=== PATIENT | female | born 1945 | race Caucasian/White ===

== ENCOUNTER 2021-02-25 14:30 | Inpatient (IN) ==
[2021-02-25] MEDS ORDERED: ALBUTEROL 2.5 MG/3 ML NEB RESP TX STA (15:10)
[2021-02-25 15:35] LABS: Basophils % 0.1 % (0.0-0.8); Hematocrit 46.5 VOL% (35.7-47.0); Hemoglobin 15.1 GM/DL (12.0-16.0); Immature Granulocytes % 0.9 %; Immature Granulocytes Absolute 0.12 #; Lymphocytes # 0.4 10*3/uL (1.4-4.0); Mean Corpuscular HGB Conc 32.5 GM/DL (32-36); Mean Corpuscular Volume 100.2 FL (87-102); Mean Platelet Volume 11.2 FL (9.6-12.0); Monocytes % 5.1 % (1.7-12.7); Neutrophils % 90.9 % (38.7-73.9); Platelet Count 244 T/CUMM (130-400); Red Blood Count 4.64 MC/CUMM (3.8-5.5); Red Cell Distribution Width 14.6 % (9.3-17.3); White Blood Count 13.7 T/CUMM (4-12)
[2021-02-25] MEDS ORDERED: LEVOFLOXACIN INJ 500 MG in PREMIX 1 EACH IV STA (15:37)
[2021-02-25 15:56] LABS: Albumin 3.6 G/DL (3.4-5.0); Bilirubin,Total 0.4 MG/DL (0.2-1.0); Calcium 10.2 MG/DL (8.5-10.1); Osmolality,Calculated 311.7 MOS/KG (273-304); Potassium 3.1 MMOL/L (3.5-5.1); Total Protein 7.7 G/DL (6.4-8.2)
[2021-02-25] MEDS ORDERED: SODIUM CHLORIDE 0.9% 1,000 ML IV STA (16:00)
[2021-02-25 16:09] LABS: Lymphocytes 5 % (20-55); Segmented Neutrophils 92 % (50-85); Total Cells Counted 100
[2021-02-25 16:10] LABS: Platelet Estimate Adequate
[2021-02-25] MEDS ORDERED: ACETAMINOPHEN 325 MG TABLET PO PRN (16:42)
[2021-02-25] MEDS ORDERED: ALBUTEROL 2.5 MG/3 ML NEB RESP TX PRN (16:42)
[2021-02-25] MEDS ORDERED: LACTATED RINGERS 1,000 ML IV ONE (16:42)
[2021-02-25] MEDS ORDERED: ONDANSETRON 4 MG/2 ML VIAL IV PRN (16:42)
[2021-02-25 17:20] LABS: ABG Base Excess 8.7 MMOL/L (-2.5-2.5); ABG HCO3 32.5 MMOL/L (20-26); ABG PH 7.452 (7.35-7.45); ABG PO2 84.9 MM HG (80-95)
[2021-02-25 19:14] LABS: Bacteria,Urine Few /HPF (Few); Bilirubin,Urine Negative (Negative); Blood, Urine Moderate mg/dL (Negative); Glucose,Urine (UA) Negative (Negative); Hyaline Casts,Urine 22 /LPF (0-3); Ketones,Urine Negative (Negative); Mucus,Urine Occasional /LPF (Occasional); Nitrite,Urine Negative (Negative); Protein,Urine 30 MG/DL; RBC,Urine 6 /HPF (0-4); Squamous Epithelial Cell,Urine Occasional /HPF (0-10); Urine Appearance Slightly Hazy (Clear); Urine Color Yellow (Yellow); Urine Specific Gravity 1.023 (1.001-1.035); Urine Urobilinogen < 2.0 EU/DL (0.2-1.0); WBC,Urine 32 /HPF (0-6)
[2021-02-25] MEDS: LACTATED RINGERS 1,000 ML IV SCH (19:15)
[2021-02-25] MEDS: CLINDAMYCIN INJ 900 MG in PREMIX 1 EACH IV SCH (19:15)
[2021-02-25] MEDS: cefTRIAXone 1,000 MG in SYRINGE 1 EACH IV SCH (19:16)
[2021-02-25] MEDS: POTASSIUM CHLORIDE RIDER 10 MEQ in PREMIX 1 EACH IV PRN ×4 (19:21→22:18)
[2021-02-25] MEDS: ALBUTEROL/IPRATROPIUM 3 ML NEB RESP TX SCH (19:39)
[2021-02-25] MEDS ORDERED: ENOXAPARIN 30 MG/0.3 ML SYRINGE SUBCUT SCH (21:00)
[2021-02-25] MEDS: guaiFENesin/DM ER 600-30 MG TABLET PO SCH (21:16)
[2021-02-26] MEDS: ALBUTEROL/IPRATROPIUM 3 ML NEB RESP TX SCH ×4 (00:38→19:47)
[2021-02-26] MEDS: CLINDAMYCIN INJ 900 MG in PREMIX 1 EACH IV SCH ×3 (01:59→18:05)
[2021-02-26 03:45] LABS: Basophils % 0.1 % (0.0-0.8); Hematocrit 32.7 VOL% (35.7-47.0); Hemoglobin 10.3 GM/DL (12.0-16.0); Immature Granulocytes % 0.7 %; Immature Granulocytes Absolute 0.08 #; Lymphocytes # 0.7 10*3/uL (1.4-4.0); Lymphocytes % 6.1 % (21.3-54.2); Mean Corpuscular HGB Conc 31.5 GM/DL (32-36); Mean Corpuscular Volume 100.6 FL (87-102); Monocytes % 6.9 % (1.7-12.7); Neutrophils % 86.2 % (38.7-73.9); Platelet Count 182 T/CUMM (130-400); Red Blood Count 3.25 MC/CUMM (3.8-5.5); Red Cell Distribution Width 14.6 % (9.3-17.3); White Blood Count 12.2 T/CUMM (4-12)
[2021-02-26 04:06] LABS: Albumin 2.3 G/DL (3.4-5.0); Bilirubin,Total 0.4 MG/DL (0.2-1.0); Calcium 8.7 MG/DL (8.5-10.1); Osmolality,Calculated 307.6 MOS/KG (273-304); Potassium 3.1 MMOL/L (3.5-5.1); Total Protein 5.5 G/DL (6.4-8.2)
[2021-02-26 04:36] LABS: ABG Base Excess 10.1 MMOL/L (-2.5-2.5); ABG HCO3 33.9 MMOL/L (20-26); ABG PCO2 55.7 MM HG (35-48); ABG PH 7.427 (7.35-7.45); ABG TCO2 32.2 MMOL/L (23-27); Allen Test Positive; Pt O2 Delivery Device Other
[2021-02-26] MEDS: POTASSIUM CHLORIDE RIDER 10 MEQ in PREMIX 1 EACH IV PRN ×4 (04:52→07:57)
[2021-02-26] MEDS: LACTATED RINGERS 1,000 ML IV SCH (04:52)
[2021-02-26] MEDS: guaiFENesin/DM ER 600-30 MG TABLET PO SCH ×2 (09:17→20:11)
[2021-02-26] MEDS: PANTOPRAZOLE 40 MG TABLET PO SCH (09:17)
[2021-02-26] MEDS: DEXTROSE 5% 1,000 ML IV SCH ×2 (10:34→21:37)
[2021-02-26] MEDS ORDERED: ENOXAPARIN 40 MG/0.4 ML SYRINGE SUBCUT SCH (11:54)
[2021-02-26] MEDS: busPIRone 5 MG TABLET PO SCH ×2 (16:06→20:11)
[2021-02-26] MEDS: cefTRIAXone 1,000 MG in SYRINGE 1 EACH IV SCH (18:02)
[2021-02-26] MEDS: MEMANTINE 10 MG TABLET PO SCH (20:11)
[2021-02-26] MEDS: ENOXAPARIN 40 MG/0.4 ML SYRINGE SUBCUT SCH (20:11)
[2021-02-26] MEDS: DONEPEZIL 5 MG TABLET PO SCH (20:11)
[2021-02-26] MEDS ORDERED: OXCARBAZEPINE PO SCH (21:00)
[2021-02-26] MEDS: AMINO ACIDS PROTEIN HYDROLYS PO SCH (21:16)
[2021-02-26] MEDS: OXcarbazepine 300 MG TABLET PO SCH (21:34)
[2021-02-27] MEDS: ALBUTEROL/IPRATROPIUM 3 ML NEB RESP TX SCH ×6 (00:39→23:40)
[2021-02-27] MEDS: CLINDAMYCIN INJ 900 MG in PREMIX 1 EACH IV SCH ×3 (01:54→17:52)
[2021-02-27 06:33] LABS: Basophils % 0.1 % (0.0-0.8); Eosinophils # 0.1 10*3/uL (0.0-0.87); Eosinophils % 0.5 % (0.00-10.9); Hematocrit 30.3 VOL% (35.7-47.0); Hemoglobin 9.7 GM/DL (12.0-16.0); Immature Granulocytes % 0.6 %; Immature Granulocytes Absolute 0.06 #; Lymphocytes % 10.1 % (21.3-54.2); Mean Corpuscular Volume 98.7 FL (87-102); Mean Platelet Volume 12.1 FL (9.6-12.0); Monocytes % 5.1 % (1.7-12.7); Neutrophils % 83.6 % (38.7-73.9); Platelet Count 162 T/CUMM (130-400); Red Blood Count 3.07 MC/CUMM (3.8-5.5); Red Cell Distribution Width 14.2 % (9.3-17.3); White Blood Count 10.2 T/CUMM (4-12)
[2021-02-27] MEDS: guaiFENesin/DM ER 600-30 MG TABLET PO SCH ×2 (09:58→20:18)
[2021-02-27] MEDS: SERTRALINE 100 MG TABLET PO SCH (09:58)
[2021-02-27] MEDS: MEMANTINE 10 MG TABLET PO SCH ×2 (09:58→20:18)
[2021-02-27] MEDS: busPIRone 5 MG TABLET PO SCH ×3 (10:03→20:18)
[2021-02-27] MEDS: SODIUM CHLORIDE 0.45% 1,000 ML IV SCH (10:03)
[2021-02-27] MEDS: POTASSIUM CHLORIDE RIDER 10 MEQ in PREMIX 1 EACH IV PRN ×4 (10:12→15:04)
[2021-02-27] MEDS: PANTOPRAZOLE 40 MG TABLET PO SCH (10:16)
[2021-02-27] MEDS: AMINO ACIDS PROTEIN HYDROLYS PO SCH ×2 (11:06→20:18)
[2021-02-27] MEDS: cefTRIAXone 1,000 MG in SYRINGE 1 EACH IV SCH (17:47)
[2021-02-27] MEDS: ENOXAPARIN 40 MG/0.4 ML SYRINGE SUBCUT SCH (20:16)
[2021-02-27] MEDS: OXcarbazepine 300 MG TABLET PO SCH (20:18)
[2021-02-27] MEDS: DONEPEZIL 5 MG TABLET PO SCH (20:18)
[2021-02-28] MEDS: ALBUTEROL/IPRATROPIUM 3 ML NEB RESP TX SCH ×5 (02:40→20:25)
[2021-02-28] MEDS: CLINDAMYCIN INJ 900 MG in PREMIX 1 EACH IV SCH ×3 (02:45→17:16)
[2021-02-28 05:20] LABS: ABG HCO3 34.8 MMOL/L (20-26); ABG Oxygen Saturation 99.8 % (95-100); ABG PCO2 58.9 MM HG (35-48); ABG PH 7.416 (7.35-7.45); ABG TCO2 33.8 MMOL/L (23-27); Allen Test Positive
[2021-02-28 05:22] LABS: Basophils % 0.1 % (0.0-0.8); Eosinophils # 0.1 10*3/uL (0.0-0.87); Eosinophils % 1.1 % (0.00-10.9); Hematocrit 33.5 VOL% (35.7-47.0); Hemoglobin 10.9 GM/DL (12.0-16.0); Immature Granulocytes % 0.6 %; Immature Granulocytes Absolute 0.06 #; Lymphocytes # 0.8 10*3/uL (1.4-4.0); Lymphocytes % 7.4 % (21.3-54.2); Mean Corpuscular HGB Conc 32.5 GM/DL (32-36); Mean Corpuscular Volume 96.3 FL (87-102); Mean Platelet Volume 11.6 FL (9.6-12.0); Monocytes % 6.6 % (1.7-12.7); Neutrophils % 84.2 % (38.7-73.9); Platelet Count 187 T/CUMM (130-400); Red Blood Count 3.48 MC/CUMM (3.8-5.5); Red Cell Distribution Width 14.1 % (9.3-17.3); White Blood Count 10.1 T/CUMM (4-12)
[2021-02-28 05:42] LABS: Calcium 8.9 MG/DL (8.5-10.1); Osmolality,Calculated 283.8 MOS/KG (273-304); Potassium 2.8 MMOL/L (3.5-5.1)
[2021-02-28] MEDS: DEXTROSE 5% 1,000 ML IV SCH (07:37)
[2021-02-28] MEDS ORDERED: MAGNESIUM SULF RIDER 4 GM in PREMIX 1 EACH IV PRN (08:48)
[2021-02-28] MEDS ORDERED: MAGNESIUM SULF RIDER 2 GM in PREMIX 1 EACH IV PRN (08:48)
[2021-02-28] MEDS: POTASSIUM CHLORIDE RIDER 10 MEQ in PREMIX 1 EACH IV PRN ×5 (09:09→17:00)
[2021-02-28] MEDS: AMINO ACIDS PROTEIN HYDROLYS PO SCH ×2 (10:52→20:27)
[2021-02-28] MEDS: busPIRone 5 MG TABLET PO SCH ×3 (10:52→20:28)
[2021-02-28] MEDS: SERTRALINE 100 MG TABLET PO SCH (10:53)
[2021-02-28] MEDS: PANTOPRAZOLE 40 MG TABLET PO SCH (10:53)
[2021-02-28] MEDS: guaiFENesin/DM ER 600-30 MG TABLET PO SCH ×2 (10:53→20:28)
[2021-02-28] MEDS: MEMANTINE 10 MG TABLET PO SCH ×2 (10:53→20:28)
[2021-02-28] MEDS: SODIUM CHLORIDE 0.45% 1,000 ML IV SCH ×2 (12:05→20:47)
[2021-02-28] MEDS: cefTRIAXone 1,000 MG in SYRINGE 1 EACH IV SCH (18:35)
[2021-02-28] MEDS: DONEPEZIL 5 MG TABLET PO SCH (20:27)
[2021-02-28] MEDS: ENOXAPARIN 40 MG/0.4 ML SYRINGE SUBCUT SCH (20:27)
[2021-02-28] MEDS: OXcarbazepine 300 MG TABLET PO SCH (20:28)
[2021-03-01] MEDS: ALBUTEROL/IPRATROPIUM 3 ML NEB RESP TX SCH ×4 (00:38→10:55)
[2021-03-01] MEDS: CLINDAMYCIN INJ 900 MG in PREMIX 1 EACH IV SCH ×2 (02:36→10:25)
[2021-03-01 05:38] LABS: Osmolality,Calculated 281.1 MOS/KG (273-304); Potassium 3.6 MMOL/L (3.5-5.1)
[2021-03-01] MEDS: PANTOPRAZOLE 40 MG TABLET PO SCH (10:18)
[2021-03-01] MEDS: SERTRALINE 100 MG TABLET PO SCH (10:18)
[2021-03-01] MEDS: AMINO ACIDS PROTEIN HYDROLYS PO SCH (10:19)
[2021-03-01] MEDS: busPIRone 5 MG TABLET PO SCH (10:19)
[2021-03-01] MEDS: guaiFENesin/DM ER 600-30 MG TABLET PO SCH (10:19)
[2021-03-01] MEDS: MEMANTINE 10 MG TABLET PO SCH (10:19)
[2021-03-01 12:49] VITALS: BP 97/53
== END 2021-03-01 15:12 | DRG 871 ==
LOC: EDBD → EDUNIT# → N.ED 14:30 → SUATTDRO 16:42 → N.EDINP 16:42 → N.ICU 18:25 → N.4E 02-26 14:41
PROVIDERS: ADMIT Family Medicine; ATTEND Family Medicine